=== PATIENT | female | born 1975 | race Caucasian/White ===

== ENCOUNTER 2023-05-19 10:18 | Day surgery (SDC) | payer OTHER ==
[~2023-05-19] VITALS: Ht 165.1 cm; Wt 75.7 kg
[~2023-05-19 10:18] MED LIST: LIDOCAINE 2%, 20 ML MDV ONE; NORMAL SALINE 10 ML VIAL ONE; iopamidoL 50 ML VIAL IV ONE; methylPREDNISolone ACETATE 40 MG/ML ONE
[2023-05-19] MEDS ORDERED: DIPHENHYDRAMINE INJ 50 MG/ML VIAL ONE (11:21)
[2023-05-19] MEDS ORDERED: INSULIN REGULAR, HUMAN 100 UNITS/ML, 3 ML VIAL (humuLIN R) ONE (12:11)
[2023-05-19] MEDS: INSULIN REGULAR, HUMAN 100 UNITS/ML, 3 ML VIAL SUBCUT ONE (12:15)
[2023-05-19] MEDS: MIDAZOLAM HCL 5 MG/5 ML VIAL ONE (12:22)
[2023-05-19 12:50] VITALS: O2SAT 99
[2023-05-19] MEDS: fentaNYL CITRATE/PF 100 MCG/2 ML AMP ONE (12:53)
[2023-05-19 17:46] VITALS: BP_SYST 108; PULSE 76; RESP 17
== END 2023-05-19 14:15 | disposition home or self-care (01) ==
LOC: SDS 10:18 → SMU 10:24 → SDS 14:15
PROVIDERS: ATTEND Internal Medicine
DX: M51.16 Intervertebral disc disorders with radiculopathy, lumbar region (principal); M51.9 Unspecified thoracic, thoracolumbar and lumbosacral intervertebral disc disorder; I10 Essential (primary) hypertension; E11.9 Type 2 diabetes mellitus without complications; Z79.84 Long term (current) use of oral hypoglycemic drugs; Z79.899 Other long term (current) drug therapy; Z90.710 Acquired absence of both cervix and uterus; Z98.890 Other specified postprocedural states
CPT/HCPCS: 62323; 82948; J1815; J1030; J2250; J3010; Q9967; 76000; J1200; J2001